=== PATIENT | female | born 1985 | race Caucasian/White ===

== ENCOUNTER → 2017-09-21 | Outpatient (CLI) | payer BC ==
[~2017-09-21] MED LIST: IBP600T1 PO
--- NOTE | 2017-09-21 17:46 | Diagnostic Imaging Report ---
INDICATION: Pelvic pain, abnormal uterine bleeding. TECHNIQUE: Multiple real-time grayscale sonographic images were obtained of the pelvis transabdominally and transvaginally. CORRELATION STUDY: None. FINDINGS: UTERUS/ENDOMETRIUM: Uterus measures 8.5 x 6.1 x 4.5 cm. Endometrial thickness is 15 mm. There is somewhat of a heterogeneous echotexture about the endometrium which is borderline thickened. RIGHT OVARY: 3.5 x 2.5 x 1.8 cm. LEFT OVARY: Not definitively visualized. Right ovary appearing unremarkable. What may be the ovary contains is perhaps a cyst at 2.4 x 2.0 cm; however, a definitive variant tissue cannot be identified. Vascular flow is demonstrated to the right ovary. No significant free pelvic fluid. IMPRESSION: 1. Endometrial thickness at the most upper limits of normal. However, there is somewhat of an abnormal heterogeneous somewhat lobulated appearance. Possibility of underlying endometrial hyperplasia, less likely carcinoma or perhaps endometrial polyp should not be excluded at this time. 2. The left ovary cannot be discretely localized perhaps owing to position. 3. Given the overall findings, it is recommended that repeat pelvic ultrasound be obtained after approximately 2-3 menstrual cycles. Dictated by: Dictated on workstation # [id number]
== END ==
LOC: RAD 15:35
PROVIDERS: ATTEND Obstetrics & Gynecology
DX: N94.5 Secondary dysmenorrhea (principal); N93.9 Abnormal uterine and vaginal bleeding, unspecified; Z68.32 Body mass index [BMI] 32.0-32.9, adult
CPT/HCPCS: 76830; 76856

== ENCOUNTER 2017-10-05 05:34 | Outpatient (CLI) | payer BC ==
[~2017-10-05] VITALS: Ht 165.1 cm; Wt 79.8 kg
[2017-10-05] MEDS ORDERED: IBUP-1780 PO (10:20)
[2017-10-05] MEDS ORDERED: HYDR-3584 PO (10:20)
[2017-10-05] MEDS ORDERED: SERT100T PO (10:20)
[2017-10-11] MEDS ORDERED: IBUP-1773 PO (07:17)
[2017-10-11] MEDS ORDERED: HYDR-4226 PO (07:17)
== END 2017-10-05 10:34 | disposition home or self-care (01) ==
LOC: PREOP 05:34
PROVIDERS: ATTEND Obstetrics & Gynecology
DX: Z01.818 Encounter for other preprocedural examination (principal)

== ENCOUNTER 2017-10-11 06:06 | Day surgery (SDC) | payer BC ==
[~2017-10-11] VITALS: Ht 165.1 cm; Wt 79.8 kg
[~2017-10-11 06:06] MED LIST changes: +HYDR-3584 PO; +IBUP-1780 PO; +SERT100T PO
--- OUTSIDE RECORDS SUMMARY | 2017-10-11 06:10 | XMS REPORT | Continuity of Care Document ---
Author Author [facility] Address Unknown Phone Unavailable Allergies Active Description Code Type Severity Reaction Onset Reported/Identified Relationship to Patient Clinical Status Yes NKANo Known Allergies NKA Miscellaneous Allergy Unknown N/A 03/22/2006 Medications There is no data. Problems Date Dx Coded Attending Type Code Diagnosis Diagnosed By 09/24/2017 LUTHER HOYOS DO Ot N93.9 ABNORMAL UTERINE AND VAGINAL BLEEDING, U 09/24/2017 LUTHER HOYOS DO Ot N94.5 SECONDARY DYSMENORRHEA 09/24/2017 LUTHER HOYOS DO Ot Z68.32 BODY MASS INDEX (BMI) 32.0-32.9, ADULT Procedures There is no data. Results Test Result Range Urinalysis - 08/10/16 11:24 Icotest N/A Negative Urine Volume Urine Volume Sufficient (10mL) Urine Yeast No Yeast present Urine-Appearance Clear Clear Urine-Bacteria 4+ Urine-Bilirubin Negative Negative Urine-Blood Negative Negative Urine-Color Yellow Colorless-Lt. Yellow Urine-Epithelial Cells 5-10/HPF Urine-Glucose Negative Negative Urine-Ketones Negative Negative Urine-Leukocytes 3+ Negative Urine-Nitrite Negative Negative Urine-Other Culture to follow Urine-pH 5.5 5-8.5 Urine-Protein Negative Negative Urine-RBC Negative Urine-Specific [place] <=1.005 1.000-1.030 Urine-WBC 10-20/HPF Urobilinogen 0.2 E.U./dL 0.2-1.0 Urine Culture - 08/10/16 11:24 PRELIM CULTURE RESULTS No Growth 24 hours FINAL CULTURE RESULTS 20,000-50,000 Gram Positive Mixed [place] Probable Skin Contaminant No Further Workup done CULTURE SOURCE Void Encounters ACCT No. Visit Date/Time Discharge Status Pt. Type Provider Facility Loc./Unit Complaint [id number] 09/10/2013 11:33:07 09/10/2013 23:59:59 CLS Outpatient Kathia Montana [id number] 09/21/2017 15:35:00 09/21/2017 23:59:59 CLS Outpatient LUTHER HOYOS DO [facility] RAD ABN UTERINE BLEEDING [id number] 08/10/2016 11:21:00 08/10/2016 23:59:00 DIS Outpatient [facility] [place]
[2017-10-11 06:40] VITALS: BP 129/62
[2017-10-11] MEDS: LACTATED RINGERS 1,000 ML IV PRN ×2 (06:40→07:58)
[2017-10-11] MEDS ORDERED: LIDOCAINE PF 2% 5 ML (XYLOCAINE) VIAL ONE (06:49)
[2017-10-11] MEDS ORDERED: ONDANSETRON 4 MG/2 ML (SDV) Z0FRAN ONE (06:49)
[2017-10-11] MEDS ORDERED: DEXAMETHASONE 10 MG/ML (DECADRON) 1 ML VIAL ONE (06:49)
[2017-10-11] MEDS ORDERED: proPOfol 200 MG/20 ML (DIPRIVAN) VIAL IV ONE (06:49)
[2017-10-11] MEDS ORDERED: MIDAZOLAM 2 MG/2 ML (VERSED) VIAL ONE (06:49)
[2017-10-11] MEDS ORDERED: fentaNYL INJECTION 100 MCG/2 ML AMP ONE (06:49)
[2017-10-11 06:53] LABS: BASOPHILS % (AUTO) 0 % (0-10); EOSINOPHILS # (AUTO) 0.3 10^3/uL (0.0-0.3); EOSINOPHILS % (AUTO) 3 % (0-10); HEMATOCRIT 42 % (35-52); HEMOGLOBIN 14.8 G/DL (11.5-16.0); LYMPHOCYTES # (AUTO) 2.1 X 10^3 (1.0-4.0); LYMPHOCYTES % (AUTO) 21 % (12-44); MEAN CORPUSCULAR HEMOGLOBIN 31 PG (25-34); MEAN CORPUSCULAR HGB CONC 35 G/DL (32-36); MEAN CORPUSCULAR VOLUME 88 FL (80-99); MEAN PLATELET VOLUME 9.9 FL (7.4-10.4); MONOCYTES # (AUTO) 0.7 X 10^3 (0.0-1.0); MONOCYTES % (AUTO) 7 % (0-12); NEUTROPHILS # (AUTO) 6.9 X 10^3 (1.8-7.8); NEUTROPHILS % (AUTO) 68 % (42-75); PLATELET COUNT 276 10^3/uL (130-400); RED BLOOD COUNT 4.78 10^6/uL (4.35-5.85); RED CELL DISTRIBUTION WIDTH 12.9 % (10.0-14.5)
[2017-10-11] MEDS ORDERED: SEVOFLURANE (ULTANE) 15 ML INHAL SOLN ONE (06:53)
[2017-10-11] MEDS ORDERED: BUPIVACAINE 0.25% 30 ML (SENSORCAINE) VIAL ONE (06:55)
[2017-10-11] MEDS ORDERED: D5 LR IV SOLUTION 1,000 ML IV SCH (07:13)
--- NOTE | 2017-10-11 07:13 | Progress Note-Pre Operative ---
Pre-Operative Progress Note H&P Reviewed The H&P was reviewed, patient examined and no changes noted. Date Seen by Provider: Oct 11, 2017 Time Seen by Provider: 07:05 Date H&P Reviewed: Oct 11, 2017 Time H&P Reviewed: 07:00 Pre-Operative Diagnosis: AUB, Thickened endometrium LUTHER HOYOS DO Oct 11, 2017 7:13 am
[2017-10-11] MEDS ORDERED: KETOROLAC 30 MG/ML VIAL IVP ONE (07:15)
[2017-10-11] MEDS ORDERED: HYDROcodone/APAP 5 MG/325 MG (LORTAB) TAB PO ONE (07:15)
[2017-10-11] MEDS ORDERED: ONDANSETRON 4 MG/2 ML (SDV) Z0FRAN IVP PRN ×2 (07:15→08:30)
--- NOTE | 2017-10-11 07:16 | Discharge Inst-Women's Service ---
Discharge Inst-Women's Serv Depart Medication/Instructions New, Converted or Re-Newed RX: RX on Chart Consults/Follow Up Additional Follow Up: Yes Orders/Referrals Dr. Hoyos in 2-3 weeks Activity Activity: Activity as Tolerated Driving Instructions: No Driving for 1 Week NO SMOKING: NO SMOKING Nothing Inside Vagina: No Douching, No [place], No Tampons Diet Discharge Diet: No Restrictions Symptoms to Report to : Bleeding Excessive, Pain Increased, Fever Over 101 Degrees F, Vaginal Bleeding Increase, Questions/Concerns For Any Problems or Questions: Contact Your Physician Skin/Wound Care Bathing Instructions: Shower (x 2 weeks) LUTHER HOYOS DO Oct 11, 2017 7:16 am
[2017-10-11] MEDS ORDERED: IBUP-1773 PO (07:17)
[2017-10-11] MEDS ORDERED: HYDR-4226 PO (07:17)
[2017-10-11] MEDS ORDERED: morphine INJ 10 MG/ML 1ML (SYR OR VIAL) ONE (08:21)
[2017-10-11] MEDS ORDERED: morphine INJ 10 MG/ML 1ML (SYR OR VIAL) IVP ONE (08:30)
[2017-10-11] MEDS ORDERED: HYDROmorphone 2 MG/ML VIAL (DILAUDID) IV ONE (08:30)
[2017-10-11 09:00] VITALS: BP 117/51
--- NOTE | 2017-10-11 09:24 | Anesthesia-General Post-Op ---
General Patient Condition Mental Status/LOC: Same as Preop Cardiovascular: Satisfactory Nausea/Vomiting: Absent Respiratory: Satisfactory Pain: Controlled Complications: Absent Post Op Complications Complications None Follow Up Care/Instructions Patient Instructions None needed. Anesthesia/Patient Condition Patient Condition Patient is doing well, no complaints, stable vital signs, no apparent adverse anesthesia problems. No complications reported per nursing. D/C home per [facility] Criteria: Yes DAVE CARBAJAL CRNA Oct 11, 2017 09:24
[2017-10-11 09:30] VITALS: BP 118/66
--- NOTE | 2017-10-11 11:08 | OPERATIVE REPORT ---
DATE OF SERVICE: 10/11/2017 PREOPERATIVE DIAGNOSES: 1. A 32-year-old female with abnormal uterine bleeding. 2. Chronic pelvic pain. 3. Thickened endometrium. POSTOPERATIVE DIAGNOSES: 1. A 32-year-old female with abnormal uterine bleeding. 2. Chronic pelvic pain. 3. Thickened endometrium. PROCEDURES: D and C and hysteroscopy. SURGEON: Luther Hoyos D.O. ANESTHESIA: General endotracheal. ESTIMATED BLOOD LOSS: Minimal. URINE OUTPUT: 50 mL, clear drained at the end of procedure. FLUIDS: One liter lactated Ringer solution. FINDINGS: A thickened endometrium with evidence of polypoid formation, but no evidence of submucosal fibroid formation and a normal uniform appearing endometrial cavity after curetting is performed. SPECIMENS SENT: Endometrial curettings. INDICATIONS FOR PROCEDURE: A 32-year-old female was consulted in my office for extremely heavy three day periods as well as chronic pelvic pain. The pain seemed to arise a day or two before her menstrual cycle and was debilitating in nature. She could feel it coming on. I discussed with the patient her ultrasound results, which showed thickened endometrium and discussed with her the possibility of endometrial polyp formation or another intracavitary lesion or even concerns of hyperplasia or malignancy. We discussed endometrial sampling; however, this would not be curative, it would be diagnostic. We also discussed a possibly curative and diagnostic procedure in the form of D and C with hysteroscopy. Risks of this procedure were discussed with the patient in detail including risk of bleeding, infection, and damage to surrounding structures including bowel into the uterus, the vagina, the cervix, uterine perforation, risk from anesthesia, and even . After everything was discussed with the patient in detail, consent was obtained. DESCRIPTION OF PROCEDURE: The patient was taken to the operating room. OPERATIVE REPORT: Once in the operating room, general anesthesia was found to be adequate, placed in dorsal lithotomy position, prepped and draped in normal sterile fashion. A weighted speculum was inserted in the patient's vagina after a bimanual examination was performed, which revealed a uterus that is not enlarged, freely mobile. There are no adnexal masses that are appreciated on bimanual examination. Right angle retractor was then used to visualize the cervix, which was grasped at the 12 o'clock position using a long Allis clamp then performed paracervical block at 3 and 9 o'clock position using 0.25% Marcaine. Care was taken to aspirate before injecting. I injected sites at 3 and 6 and 5 mL that were injected into each site. After this was done, I sounded the uterine cavity. Depth was found to be 7 cm. I then gently dilated the cervix using Hegar dilators to maximum dilatation of 7 mm at which point I introduced a hysteroscope using normal saline as my visual medium able to visualize intrauterine cavity. There are excessive amounts of endometrial tissue that is fluffy in nature and also possibly polypoid appearing as well. After I identified all this tissue, I am unable to visualize the cavity itself due to the amount of tissue present. I removed the hysteroscope and performed by curetting using a small endometrial curette. I did this in a methodical fashion, cleared in all of the surfaces of the endometrial canal, and collecting the tissue as endometrial curettings. A repeat hysteroscopy with normal saline allows me to visualize the cavity, which shows no evidence of submucosal fibroid formation or any other abnormality after which I removed the hysteroscope and the procedure was complete at that point. Therefore, I removed the Allis clamp and the weighted speculum. The bladder is drained using straight catheterization. The patient tolerated the procedure well and was taken to recovery area in stable condition. Lap and sponge counts were correct at the end of the procedure. Instrument counts were correct as well. Job ID: [id number] DocumentID: [id number] Dictated Date: 10/11/2017 08:21:37 Manager Image Date: 10/11/2017 09:45:46 Dictated By: LUTHER HOYOS DO
== END 2017-10-11 09:35 | disposition home or self-care (01) ==
LOC: SDC 06:06
PROVIDERS: ATTEND Obstetrics & Gynecology
DX: N93.9 Abnormal uterine and vaginal bleeding, unspecified (principal); R93.8 Abnormal findings on diagnostic imaging of other specified body structures; N84.0 Polyp of corpus uteri; R10.2 Pelvic and perineal pain; F17.210 Nicotine dependence, cigarettes, uncomplicated
CPT/HCPCS: 36415; 84703; 85025; 86850; 86900; 86901; 87081; 88305